=== PATIENT | male | born 1970 | race Caucasian/White ===

== ENCOUNTER 2024-12-12 07:39 | Emergency (ER) | payer MEDICAID ==
[~2024-12-12] VITALS: Ht 177.8 cm; Wt 70.0 kg
[2024-12-12 07:42] VITALS: BP 158/104; PULSE 116; RESP 18; TEMP 36.8; O2SAT 100
[2024-12-12] MEDS ORDERED: ASPIRIN 81MG TABLET PO ONE (08:45)
[2024-12-12 10:28] LABS: *AMPHETAMINES SCREEN URINE PRESUMPTIVE POSITIVE (NEGATIVE); *BARBITURATES SCREEN URINE NEGATIVE (NEGATIVE); *BENZODIAZEPINES SCREEN URINE NEGATIVE (NEGATIVE); *COCAINE SCREEN URINE NEGATIVE (NEGATIVE); CANNABINOID URINE SCREEN NEGATIVE (NEGATIVE); ECSTASY MDMA SCREEN URINE CONF.TEST INDICATED (NEGATIVE); METHADONE URINE SCREEN NEGATIVE (NEGATIVE); OPIATES URINE SCREEN NEGATIVE (NEGATIVE); PHENCYCLIDINE URINE SCREEN NEGATIVE (NEGATIVE)
== END 2024-12-12 09:14 | disposition left against medical advice (07) ==
LOC: ER 07:47
DX: R07.89 Other chest pain (principal); F15.10 Other stimulant abuse, uncomplicated; F41.9 Anxiety disorder, unspecified; Z79.899 Other long term (current) drug therapy
CPT/HCPCS: 80305; 99283